=== PATIENT | male | born 1955 | race Caucasian/White ===

== ENCOUNTER 2018-05-27 12:33 | Emergency (ER) | payer BC ==
[~2018-05-27] VITALS: Ht 175.3 cm; Wt 79.4 kg
[2018-05-27] MEDS ORDERED: PIPERACILLIN/TAZOBACTAM 3.375 GM in IV NORMAL SALINE 50ML 50 ML IV ONE (12:45)
[2018-05-27 12:47] VITALS: BP 140/79
[2018-05-27] MEDS: PIPERACILLIN/TAZOBACTAM 3.375 GM in IV NORMAL SALINE 50ML 50 ML IV ONE (13:05)
[2018-05-27] MEDS: MORPHINE SULFATE 10 MG/ML VIAL. IV ONE (13:05)
--- NOTE | 2018-05-27 13:08 | RAD ---
Left index finger, 3 views, 05/27/2018: HISTORY: Amputation injury There is a soft tissue defect at the tip of the finger compatible with an amputation injury. There is fragmentation of the terminal tuft of the distal phalanx with mild associated bony loss. The proximal and middle phalanges are unremarkable. IMPRESSION: Comminuted fracture of the terminal tuft of the distal phalanx of the index finger. Electronically signed by: Ruben Gee MD (05/27/2018 1:05 PM) [facility]
[2018-05-27] MEDS: BUPIVACAINE 0.5% 50 ML VIAL. INJ ONE (13:20)
[2018-05-27] MEDS: LIDOCAINE 1% PF 2 ML VIAL. INJ ONE (13:20)
[2018-05-27] MEDS ORDERED: HYDR-3164 PO (15:05)
[2018-05-27] MEDS ORDERED: CEPH500T PO (15:05)
--- NOTE | 2018-05-27 15:06 | PHYS DOC ---
Past Medical History Past Medical History: High Cholesterol Additional Past Medical Histor: GOUT,CHRONIC BACK PAIN Past Surgical History: Other Additional Past Surgical Histo: BACK SURGERY Alcohol Use: None Drug Use: None Adult General Chief Complaint Chief Complaint: FINGER INJURY HPI HPI Patient is a 63 year old medical presents with left index finger laceration, patient states he was working with a table saw that accidentally cut him. Patient states is right-handed. Review of Systems Review of Systems Constitutional: Denies fever or chills [] Musculoskeletal: Denies back pain or joint pain [] Integument: Reports left index finger laceration Neurologic: Denies headache, focal weakness or sensory changes [] All other systems were reviewed and found to be within normal limits, except as documented in this note. Current Medications Current Medications Current Medications Medications (Trade) Dose Ordered Sig/Flip Start Time Stop Time Status Last Admin Dose Admin Bupivacaine HCl (Marcaine 0.5%) 50 ml 1X ONCE 05/27/18 13:00 05/27/18 13:02 DC 05/27/18 13:20 50 ML Lidocaine HCl (Xylocaine-Mpf 1% 2ml Vial) 2 ml 1X ONCE 05/27/18 13:00 05/27/18 13:02 DC 05/27/18 13:20 2 ML Morphine Sulfate (Morphine Sulfate) 5 mg 1X ONCE 05/27/18 12:45 05/27/18 12:48 DC 05/27/18 13:05 5 MG Piperacillin Sod/ Tazobactam Sod 3.375 gm/Sodium Chloride 50 ml @ 100 mls/hr 1X ONCE 05/27/18 13:00 05/27/18 13:29 DC 05/27/18 13:05 100 MLS/HR Allergies Allergies Allergies Coded Allergies Type Severity Reaction Last Updated Verified No Known Drug Allergies 05/27/18 No Physical Exam Physical Exam Constitutional: Well developed, well nourished, no acute distress, non-toxic appearance. [] Skin: C extremity Back: No tenderness, no CVA tenderness. [] Extremities: Left index finger with multiple lacerations of the tip of the finger, there is some skin avulsion noted. The nail has multiple lacerations as well. An area approximately 2 x 3 x 2 cm is affected, this no obvious tendon involvement, patient able to flex and extend the finger at the MIP, PIP and DIP joints. Adequate radius sensation to the left index finger. +2 left radial pulse. Neurologic: Alert and oriented X 3, normal motor function, normal sensory function, no focal deficits noted. [] Psychologic: Affect normal, judgement normal, mood normal. [] Current Patient Data Vital Signs Vital Signs Date Time Temp Pulse Resp B/P (MAP) Pulse Ox O2 Delivery O2 Flow Rate FiO2 05/27/18 12:47 97.5 61 18 140/79 (99) 100 Room Air 97.5 EKG EKG [] Radiology/Procedures Radiology/Procedures []PROCEDURE: FINGER(S) LEFT Left index finger, 3 views, 05/27/2018: HISTORY: Amputation injury There is a soft tissue defect at the tip of the finger compatible with an amputation injury. There is fragmentation of the terminal tuft of the distal phalanx with mild associated bony loss. The proximal and middle phalanges are unremarkable. IMPRESSION: Comminuted fracture of the terminal tuft of the distal phalanx of the index finger. Electronically signed by: Ruben Gee MD (05/27/2018 1:05 PM) [facility] DICTATED and SIGNED BY: RUBEN GEE MD DATE: 05/27/18 1306 Course & Med Decision Making Course & Med Decision Making Pertinent Labs and Imaging studies reviewed. (See chart for details) This is a 63-year-old male patient presented to the ED today with left index finger laceration, patient was accidentally cut with a table saw. Left index finger x-rays interpreted by radiologist were noted for-Comminuted fracture of the terminal tuft of the distal phalanx of the index finger. Patient was given Zosyn, nerve block was done to the fingers successfully, finger was cleaned with 500ml of NS and covered with non stick dressing. 14:31 Consulted with [facility], spoke with who requested we discharge patient and have him follow-up with his office tomorrow morning. I spoke with Velma in his office, she has an appointment scheduled for patient at 0745. Patient was discharged with cephalexin and hydrocodone as needed for pain. Dragon Disclaimer Dragon Disclaimer This electronic medical record was generated, in whole or in part, using a voice recognition dictation system. Departure Departure Impression: Primary Impression: Open fracture of tuft of distal phalanx of finger Disposition: 01 HOME, SELF-CARE Condition: STABLE Referrals: UNKNOWN PCP NAME (PCP) Follow-up with Dr. Pratt at [facility] tomorrow morning 7:45 AM. His office is on the first floor of the orthopedic building at [facility] Patient Instructions: Finger Fracture (Phalangeal)-SportsMed, Fingertip Laceration Additional Instructions: You were evaluated in the emergency room and noted to have an open fracture of the left index finger. We spoke with Dr. Pratt at [facility] who requested you follow-up with him first thing tomorrow morning. Your appointment at 7:45 AM on the first floor of orthopedic building at [facility] Scripts Hydrocodone/Apap 5-325 (NORCO 5-325 TABLET) 1 Each Tablet 1-2 TAB PO Q4-6HRS PRN for PAIN, #25 TAB Prov: ANTHONY DAUGHERTY APRN 05/27/18 Cephalexin (CEPHALEXIN) 500 Mg Tablet 1 TAB PO QID, #40 TAB Prov: ATNHONY DAUGHERTY APRN 05/27/18 ANTHONY DAUGHERTY APRN May 27, 2018 15:06
== END 2018-05-27 15:16 | disposition home or self-care (01) ==
LOC: ER 12:33
DX: S62.631B Displaced fracture of distal phalanx of left index finger, initial encounter for open fracture (principal); E78.00 Pure hypercholesterolemia, unspecified; G89.29 Other chronic pain; W27.0XXA Contact with workbench tool, initial encounter; Y93.89 Activity, other specified; Y92.89 Other specified places as the place of occurrence of the external cause; Y99.0 Civilian activity done for income or pay
CPT/HCPCS: 64450; 73140; 96365; 96375; 99284; J2270; J2543; J3490; 99283

== ENCOUNTER 2018-09-11 11:47 | Inpatient (IN) | payer BC ==
[~2018-09-11] VITALS: Ht 175.3 cm; Wt 79.4 kg
[~2018-09-11 11:47] MED LIST: CEPH500T PO; HYDR-3164 PO
[2018-09-11] MEDS ORDERED: IV NORMAL SALINE 1000ML BAG 1,000 ML IV ONE ×2 (12:15→14:00)
[2018-09-11] MEDS ORDERED: ONDANSETRON PF 4 MG/2 ML VIAL. IV ONE ×2 (12:15→15:30)
[2018-09-11 12:21] LABS: BASO % 0 % (0-3); EOS # 0.1 x10^3/uL (0.0-0.7); EOS % 1 % (0-3); HEMATOCRIT 48.4 % (39.0-53.0); HEMOGLOBIN 16.1 g/dL (13.0-17.5); LYMPH # 0.9 x10^3/uL (1.0-4.8); LYMPH % 13 % (24-48); MEAN CORPUSCULAR HEMOGLOBIN 31 pg (25-35); MEAN CORPUSCULAR HGB CONC 33 g/dL (31-37); MEAN CORPUSCULAR VOLUME 92 fL (79-100); MONO # 0.5 x10^3/uL (0.0-1.1); MONO % 7 % (0-9); NEUT # 5.8 x10^3uL (1.8-7.7); NEUT % 80 % (31-73); PLATELET COUNT 218 x10^3/uL (140-400); RED BLOOD COUNT 5.24 x10^6/uL (4.30-5.70); WHITE BLOOD COUNT 7.3 x10^3/uL (4.0-11.0)
[2018-09-11] MEDS ORDERED: MORPHINE SULFATE 10 MG/ML VIAL. IV ONE ×2 (12:30→15:15)
[2018-09-11 12:33] LABS: CALCIUM 9.2 mg/dL (8.5-10.1); GFR 75.2; POTASSIUM 3.9 mmol/L (3.5-5.1)
[2018-09-11 12:41] LABS: ALBUMIN 4.3 g/dL (3.4-5.0); ALBUMIN/GLOBULIN RATIO 1.2 (1.0-1.7); TOTAL BILIRUBIN 0.8 mg/dL (0.2-1.0); TOTAL PROTEIN 7.9 g/dL (6.4-8.2)
[2018-09-11] MEDS ORDERED: IOHEXOL 300 MG/ML 100ML VIAL. IV ONE (12:45)
[2018-09-11] MEDS ORDERED: CONTRAST GIVEN. MC PRN (13:00)
--- NOTE | 2018-09-11 13:04 | RAD ---
Examination: CT of the abdomen pelvis with IV contrast HISTORY: History of diarrhea COMPARISON: None available TECHNIQUE: Axial CT images of the abdomen pelvis were performed with IV contrast. Coronal and sagittal reformats are performed Exposure: One or more of the following individualized dose reduction techniques were utilized for this examination: 1. Automated exposure control 2. Adjustment of the mA and/or kV according to patient size 3. Use of iterative reconstruction technique FINDINGS: Mild bibasilar lung atelectasis. No evidence of free air identified in the abdomen. The visualized liver, spleen, adrenals grossly appears unremarkable. The gallbladder is mildly distended. The stomach is mildly distended. The visualized pancreas grossly appears unremarkable. The small bowel is nondilated. The appendix is normal. Feces and gas noted in the colon. There is mild thickened appearance of the wall of the transverse colon, descending colon the sigmoid colon with minimal surrounding fat stranding likely colitis. Urinary bladder is mildly distended. The bilateral kidneys enhance symmetrically. Mild aortic atherosclerosis. Lower lumbar fusion hardware identified at L4-L5 vertebral levels. IMPRESSION: 1. Mild thickened appearance of the wall of the transverse colon, descending colon, sigmoid colon with minimal surrounding fat stranding likely colitis. Electronically signed by: Asif Bowen MD (09/11/2018 1:01 PM) [id number]
[2018-09-11 15:00] LABS: BILIRUBIN,URINE NEGATIVE (NEG); CLARITY,URINE CLEAR; COLOR,URINE YELLOW; NITRITE,URINE NEGATIVE (NEG); PROTEIN,URINE NEGATIVE (NEG-TRACE); UROBILINOGEN,URINE 0.2 mg/dL (0.2 mg/dL)
[2018-09-11 15:13] LABS: BACTERIA,URINE 0 /HPF (0-FEW); RBC,URINE RARE /HPF (0-2); WBC,URINE RARE /HPF (0-4)
[2018-09-11] MEDS ORDERED: ONDANSETRON PF 4 MG/2 ML VIAL. IV PRN (15:30)
[2018-09-11] MEDS ORDERED: MORPHINE SULFATE 4 MG/ML VIAL. IV PRN (15:30)
[2018-09-11] MEDS ORDERED: CIPROFLOXACIN 400MG PREMIX 200 ML IV ONE (15:30)
[2018-09-11] MEDS ORDERED: fentaNYL PF VIAL 100 MCG/2 ML VIAL IV PRN (15:30)
--- NOTE | 2018-09-11 15:41 | PDOC1 ---
History and Physical Date of Admission Date of Admission DATE: 09/11/18 TIME: 15:40 Identification/Chief Complaint Chief Complaint SEEN IN ER WITH PROFUSE WATERY DIARRHEA X 6 DAYS, HAS TRIED GATORADE, BUT STIILL FEELS DEHYDRATED HAS HAD ABDOMINAL DISCOMFORT WELL Past Medical History Past Medical History Past Medical History Past Medical History: High Cholesterol Additional Past Medical Histor: GOUT,CHRONIC BACK PAIN Past Surgical History: Other Additional Past Surgical Histo: BACK SURGERY Alcohol Use: None Drug Use: None FHX HYPERLIPIDEMIA Cardiovascular: No pertinent hx Pulmonary: No pertinent hx ENT: No pertinent hx Renal/: No pertinent hx Endocrine: No pertinent hx Family History Family History: High Cholestrol Social History Smoke: No ALCOHOL: occassional Drugs: None Current Medications Current Medications Current Medications Ondansetron HCl (Zofran) 4 mg 1X ONCE IV Last administered on 09/11/18at 12:30 ; Start 09/11/18 at 12:15; Stop 09/11/18 at 12:16; Status DC Sodium Chloride 1,000 ml @ 1,000 mls/hr 1X ONCE IV Last administered on at 12:30; Start 09/11/18 at 12:15; Stop 09/11/18 at 13:14; Status DC Morphine Sulfate (Morphine Sulfate) 5 mg 1X ONCE IV Last administered on at 12:30; Start 09/11/18 at 12:30; Stop 09/11/18 at 12:31; Status DC Iohexol (Omnipaque 300 Mg/ml) 75 ml 1X ONCE IV ; Start 09/11/18 at 12:45; Stop 09/11/18 at 12:46; Status DC Info (CONTRAST GIVEN -- Rx MONITORING) 1 each PRN DAILY PRN MC SEE COMMENTS; Start 09/11/18 at 13:00; Stop 09/13/18 at 12:59 Sodium Chloride 1,000 ml @ 1,000 mls/hr 1X ONCE IV Last administered on at 14:04; Start 09/11/18 at 14:00; Stop 09/11/18 at 14:59; Status DC Morphine Sulfate (Morphine Sulfate) 5 mg 1X ONCE IV Last administered on at 15:33; Start 09/11/18 at 15:15; Stop 09/11/18 at 15:16; Status DC Ondansetron HCl (Zofran) 4 mg 1X ONCE IV ; Start 09/11/18 at 15:30; Stop at 15:31; Status DC Ciprofloxacin/ Dextrose 200 ml @ 200 mls/hr 1X ONCE IV ; Start 09/11/18 at 15: 30; Stop 09/11/18 at 16:29; Status UNV Metronidazole 100 ml @ 100 mls/hr 1X ONCE IV ; Start 09/11/18 at 15:30; Stop 09/11/18 at 16:29; Status UNV Ondansetron HCl (Zofran) 4 mg PRN Q8HRS PRN IV NAUSEA/VOMITING; Start 09/11/18 at 15:30; Stop 09/12/18 at 15:29; Status UNV Morphine Sulfate (Morphine Sulfate) 4 mg PRN Q2HR PRN IV PAIN; Start 09/11/18 at 15:30; Stop 09/12/18 at 15:29; Status UNV Fentanyl Citrate (Fentanyl 2ml Vial) 50 mcg PRN Q1HR PRN IV PAIN; Start at 15:30; Stop 09/12/18 at 15:29; Status UNV Sodium Chloride 1,000 ml @ 125 mls/hr Q8H IV ; Start 09/11/18 at 15:30; Stop at 15:29; Status UNV Active Scripts Active [place] 5-325 Tablet (Acetaminophen/Hydrocodone Bitart) 1 Each Tablet 1-2 Tab PO Q4-6HRS PRN Cephalexin 500 Mg Tablet 1 Tab PO QID Allergies Allergies: Coded Allergies: No Known Drug Allergies (Unverified , 05/27/18) ROS Review of System 14 PT ROS OTHERWISE NEG General: YES: Fatigue PSYCHOLOGICAL ROS: No: Anxiety, Behavioral Disorder, Concentration difficultie , Decreased libido, Depression, Disorientation, Hallucinations, Hostility, Irritablity, Memory difficulties, Mood Swings, Obsessive thoughts, Physical abuse, Sexual abuse, Sleep disturbances, Suicidal ideation, Other Eyes: No Blurry vision, No Decreased vision, No Double vision, No Dry eyes, No Excessive tearing, No Eye Pain, No Itchy Eyes, No Loss of vision, No Photophobia , No Scotomata, No Uses contacts, No Uses glasses, No Other HEENT: No: Heacaches, Visual Changes, Hearing change, Nasal congestion, Nasal discharge, Oral lesions, Sinus pain, Sore Throat, Epistaxis, Sneezing, Snoring, Tinnitus, Vertigo, Vocal changes, Other ALLERGY AND IMMUNOLOGY: No: Hives, Insect Bite Sensitivity, Itchy/Watery Eyes, Nasal Congestion, Post Nasal Drip, Seasonal Allergies, Other Hematological and Lymphatic: No: Bleeding Problems, Blood Clots, Blood Transfusions, Brusing, Night Sweats, Pallor, Swollen Lymph Nodes, Other ENDOCRINE: No: Breast Changes, Galactorrhea, Hair Pattern Changes, Hot Flashes , Malaise/lethargy, Mood Swings, Palpitations, Polydipsia/polyuria, Skin Changes , Temperature Intolerance, Unexpected Weight Changes, Other Breast: No New/Changing Breast Lumps, No Nipple changes, No Nipple discharge, No Other Respiratory: No: Cough, Hemoptysis, Orthopnea, Pleuritic Pain, Shortness of breath, SOB with excertion, Sputum Changes, Stridor, Tachypnea, Wheezing, Other Gastrointestinal: Yes Nausea, Yes Diarrhea Genitourinary: No Dysuria, No Frequency, No Incontinence, No Hematuria, No Retention, No Discharge, No Urgency, No Pain, No Flank Pain, No Other, No , No , No , No , No , No , No Musculoskeletal: No Gait Disturbance, No Joint Pain, No Joint Stiffness, No Joint Swelling, No Muscle Pain, No Muscular Weakness, No Pain In:, No Swelling In:, No Other Neurological: No Behavorial Changes, No Bowel/Bladder ControlChng, No Confusion , No Dizziness, No Gait Disturbance, No Headaches, No Impaired Coord/balance, No Memory Loss, No Numbness/Tingling, No Seizures, No Speech Problems, No Tremors, No Visual Changes, No Weakness, No Other Skin: Yes Dry Skin; No Eczema, No Hair Changes, No Lumps, No Mole Changes, No Mottling, No Nail Changes, No Pruritus, No Rash, No Skin Lesion Changes, No Other, No Acne Physical Exam General: Alert, Oriented X3, Cooperative, No acute distress, mild distress HEENT: Atraumatic, PERRLA Lungs: Clear to auscultation, Normal air movement Heart: S1S2, RRR, no thrills, no rubs, no gallops, no murmurs Cardiovascular: S1 Abdomen: Normal bowel sounds, Soft, No masses Rectal Exam: not examined Extremities: No clubbing, No cyanosis, No edema Neuro: Normal speech, Cranial nerves 3-12 NL Psych/Mental Status: Mental status NL, Mood NL Vitals Vitals Vital Signs Date Time Temp Pulse Resp B/P (MAP) Pulse Ox O2 Delivery O2 Flow Rate FiO2 09/11/18 15:33 18 09/11/18 14:05 68 142/78 (99) 97 Room Air 09/11/18 11:47 98.4 98.4 Labs Labs Laboratory Tests Test 09/11/18 12:07 09/11/18 12:30 09/11/18 14:48 White Blood Count 7.3 x10^3/uL (4.0-11.0) Red Blood Count 5.24 x10^6/uL (4.30-5.70) Hemoglobin 16.1 g/dL (13.0-17.5) Hematocrit 48.4 % (39.0-53.0) Mean Corpuscular Volume 92 fL (79-100) Mean Corpuscular Hemoglobin 31 pg (25-35) Mean Corpuscular Hemoglobin Concent 33 g/dL (31-37) Red Cell Distribution Width 13.0 % (11.5-14.5) Platelet Count 218 x10^3/uL (140-400) Neutrophils (%) (Auto) 80 % (31-73) Lymphocytes (%) (Auto) 13 % (24-48) Monocytes (%) (Auto) 7 % (0-9) Eosinophils (%) (Auto) 1 % (0-3) Basophils (%) (Auto) 0 % (0-3) Neutrophils # (Auto) 5.8 x10^3uL (1.8-7.7) Lymphocytes # (Auto) 0.9 x10^3/uL (1.0-4.8) Monocytes # (Auto) 0.5 x10^3/uL (0.0-1.1) Eosinophils # (Auto) 0.1 x10^3/uL (0.0-0.7) Basophils # (Auto) 0.0 x10^3/uL (0.0-0.2) Sodium Level 141 mmol/L (136-145) Potassium Level 3.9 mmol/L (3.5-5.1) Chloride Level 103 mmol/L (98-107) Carbon Dioxide Level 29 mmol/L (21-32) Anion Gap 9 (6-14) Blood Urea Nitrogen 18 mg/dL (8-26) Creatinine 1.0 mg/dL (0.7-1.3) Estimated GFR (Cockcroft-Gault) 75.2 BUN/Creatinine Ratio 18 (6-20) Glucose Level 102 mg/dL (70-99) Calcium Level 9.2 mg/dL (8.5-10.1) Total Bilirubin 0.8 mg/dL (0.2-1.0) Aspartate Amino Transf (AST/SGOT) 21 U/L (15-37) Alanine Aminotransferase (ALT/SGPT) 28 U/L (16-63) Alkaline Phosphatase 68 U/L (46-116) Total Protein 7.9 g/dL (6.4-8.2) Albumin 4.3 g/dL (3.4-5.0) Albumin/Globulin Ratio 1.2 (1.0-1.7) Lactic Acid Level 0.8 mmol/L (0.4-2.0) Urine Collection Type Unknown Urine Color Yellow Urine Clarity Clear Urine pH 5.0 Urine Specific [place] >=1.030 Urine Protein Negative mg/dL (NEG-TRACE) Urine Glucose (UA) Negative mg/dL (NEG) Urine Ketones (Stick) 15 mg/dL (NEG) Urine Blood Negative (NEG) Urine Nitrite Negative (NEG) Urine Bilirubin Negative (NEG) Urine Urobilinogen Dipstick 0.2 mg/dL (0.2 mg/dL) Urine Leukocyte Esterase Negative (NEG) Urine RBC Rare /HPF (0-2) Urine WBC Rare /HPF (0-4) Urine Bacteria 0 /HPF (0-FEW) Urine Mucus Slight /LPF Laboratory Tests Test 09/11/18 12:07 09/11/18 12:30 09/11/18 14:48 White Blood Count 7.3 x10^3/uL (4.0-11.0) Red Blood Count 5.24 x10^6/uL (4.30-5.70) Hemoglobin 16.1 g/dL (13.0-17.5) Hematocrit 48.4 % (39.0-53.0) Mean Corpuscular Volume 92 fL (79-100) Mean Corpuscular Hemoglobin 31 pg (25-35) Mean Corpuscular Hemoglobin Concent 33 g/dL (31-37) Red Cell Distribution Width 13.0 % (11.5-14.5) Platelet Count 218 x10^3/uL (140-400) Neutrophils (%) (Auto) 80 % (31-73) Lymphocytes (%) (Auto) 13 % (24-48) Monocytes (%) (Auto) 7 % (0-9) Eosinophils (%) (Auto) 1 % (0-3) Basophils (%) (Auto) 0 % (0-3) Neutrophils # (Auto) 5.8 x10^3uL (1.8-7.7) Lymphocytes # (Auto) 0.9 x10^3/uL (1.0-4.8) Monocytes # (Auto) 0.5 x10^3/uL (0.0-1.1) Eosinophils # (Auto) 0.1 x10^3/uL (0.0-0.7) Basophils # (Auto) 0.0 x10^3/uL (0.0-0.2) Sodium Level 141 mmol/L (136-145) Potassium Level 3.9 mmol/L (3.5-5.1) Chloride Level 103 mmol/L (98-107) Carbon Dioxide Level 29 mmol/L (21-32) Anion Gap 9 (6-14) Blood Urea Nitrogen 18 mg/dL (8-26) Creatinine 1.0 mg/dL (0.7-1.3) Estimated GFR (Cockcroft-Gault) 75.2 BUN/Creatinine Ratio 18 (6-20) Glucose Level 102 mg/dL (70-99) Calcium Level 9.2 mg/dL (8.5-10.1) Total Bilirubin 0.8 mg/dL (0.2-1.0) Aspartate Amino Transf (AST/SGOT) 21 U/L (15-37) Alanine Aminotransferase (ALT/SGPT) 28 U/L (16-63) Alkaline Phosphatase 68 U/L (46-116) Total Protein 7.9 g/dL (6.4-8.2) Albumin 4.3 g/dL (3.4-5.0) Albumin/Globulin Ratio 1.2 (1.0-1.7) Lactic Acid Level 0.8 mmol/L (0.4-2.0) Urine Collection Type Unknown Urine Color Yellow Urine Clarity Clear Urine pH 5.0 Urine Specific [place] >=1.030 Urine Protein Negative mg/dL (NEG-TRACE) Urine Glucose (UA) Negative mg/dL (NEG) Urine Ketones (Stick) 15 mg/dL (NEG) Urine Blood Negative (NEG) Urine Nitrite Negative (NEG) Urine Bilirubin Negative (NEG) Urine Urobilinogen Dipstick 0.2 mg/dL (0.2 mg/dL) Urine Leukocyte Esterase Negative (NEG) Urine RBC Rare /HPF (0-2) Urine WBC Rare /HPF (0-4) Urine Bacteria 0 /HPF (0-FEW) Urine Mucus Slight /LPF Images Images STATUS: REG ER ORD. PHYSICIAN: DELMIS KERNS APRN REASON: diarrhea and abdominal pain x 5 days PROCEDURE: CT ABD PELV W/ IV CONTRST ONLY Examination: CT of the abdomen pelvis with IV contrast HISTORY: History of diarrhea COMPARISON: None available TECHNIQUE: Axial CT images of the abdomen pelvis were performed with IV contrast. Coronal and sagittal reformats are performed Exposure: One or more of the following individualized dose reduction techniques were utilized for this examination: 1. Automated exposure control 2. Adjustment of the mA and/or kV according to patient size 3. Use of iterative reconstruction technique FINDINGS: Mild bibasilar lung atelectasis. No evidence of free air identified in the abdomen. The visualized liver, spleen, adrenals grossly appears unremarkable. The gallbladder is mildly distended. The stomach is mildly distended. The visualized pancreas grossly appears unremarkable. The small bowel is nondilated. The appendix is normal. Feces and gas noted in the colon. There is mild thickened appearance of the wall of the transverse colon, descending colon the sigmoid colon with minimal surrounding fat stranding likely colitis. Urinary bladder is mildly distended. The bilateral kidneys enhance symmetrically. Mild aortic atherosclerosis. Lower lumbar fusion hardware identified at L4-L5 vertebral levels. IMPRESSION: 1. Mild thickened appearance of the wall of the transverse colon, descending colon, sigmoid colon with minimal surrounding fat stranding likely colitis. VTE Prophylaxis Ordered VTE Prophylaxis Devices: Yes VTE Pharmacological Prophylaxi: Yes Assessment/Plan Assessment/Plan IMPRESSION 1. PERSISTENT GASTROENTERITIS 2. DEHYDRATION 3. ABD PAIN POSSIBLE COLITIS 4. Mild thickened appearance of the wall of the transverse colon, descending colon, sigmoid colon with minimal surrounding fat stranding likely colitis. PLAN NPO IV FLUID SUPPORT C-DIFF SCREEN GI CONSULT HOME MEDS AM LABS CT ABD/PELVIS DVT PROPHYLAXIS IV CIPRO/ FLAGYL BEN HODGES MD Sep 11, 2018 15:40
[2018-09-11 16:30] VITALS: BP 161/85
[2018-09-11] MEDS: IV NORMAL SALINE 1000ML BAG 1,000 ML IV SCH ×2 (17:26→21:03)
[2018-09-11] MEDS ORDERED: ALLO300T PO (18:28)
[2018-09-11] MEDS ORDERED: FAMO20TA5 PO (18:28)
[2018-09-11] MEDS ORDERED: SIMV40TA3 PO (18:28)
[2018-09-11 19:00] VITALS: BP 112/76
[2018-09-11] MEDS ORDERED: HYDROcodone/APAP 5/325MG 1 TAB TABLET PO PRN ×3 (19:00→19:15)
--- NOTE | 2018-09-11 19:10 | PHYS DOC ---
Past Medical History Past Medical History: High Cholesterol Additional Past Medical Histor: GOUT,CHRONIC BACK PAIN Past Surgical History: Other Additional Past Surgical Histo: BACK SURGERY, KNEE Alcohol Use: None Drug Use: None Adult General Chief Complaint Chief Complaint: DIARRHEA HPI HPI Patient is a 63 year old male who presents with lower mid abdominal pain, abdominal cramping and diarrhea that began 5 days ago. The patient denies fever or body aches. He denies a history of abdominal surgeries. The patient is healthy with only high cholesterol as a medical issue. The patient denies any family members with similar symptoms. Review of Systems Review of Systems Constitutional: Denies fever or chills [] Respiratory: Denies cough or shortness of breath [] Cardiovascular: No additional information not addressed in HPI [] GI: See history of present illness : Denies dysuria or hematuria [] Musculoskeletal: Denies back pain or joint pain [] Integument: Denies rash or skin lesions [] Neurologic: Denies headache, focal weakness or sensory changes [] Endocrine: Denies polyuria or polydipsia [] All other systems were reviewed and found to be within normal limits, except as documented in this note. Current Medications Current Medications Current Medications Medications (Trade) Dose Ordered Sig/Flip Start Time Stop Time Status Last Admin Dose Admin Info (CONTRAST GIVEN -- Rx MONITORING) 1 each PRN DAILY PRN 09/11/18 13:00 09/13/18 12:59 Iohexol (Omnipaque 300 Mg/ml) 75 ml 1X ONCE 09/11/18 12:45 09/11/18 12:46 DC Morphine Sulfate (Morphine Sulfate) 5 mg 1X ONCE 09/11/18 15:15 09/11/18 15:16 DC 09/11/18 15:33 5 MG Ondansetron HCl (Zofran) 4 mg 1X ONCE 09/11/18 12:15 09/11/18 12:16 DC 09/11/18 12:30 4 MG Sodium Chloride 1,000 ml @ 1,000 mls/hr 1X ONCE 09/11/18 14:00 09/11/18 14:59 DC 09/11/18 14:04 1,000 MLS/HR Allergies Allergies Allergies Coded Allergies Type Severity Reaction Last Updated Verified No Known Drug Allergies 05/27/18 No Physical Exam Physical Exam Constitutional: Well developed, well nourished, no acute distress, non-toxic appearance. [] Cardiovascular:Heart rate regular rhythm, no murmur [] Lungs & Thorax: Bilateral breath sounds clear to auscultation [] Abdomen: Bowel sounds hyperactive, soft, lower abdominal tenderness, no masses, no pulsatile masses. [] Skin: Warm, dry, no erythema, no rash. [] Back: No tenderness, no CVA tenderness. [] Extremities: No tenderness, no cyanosis, no clubbing, ROM intact, no edema. [] Neurologic: Alert and oriented X 3, normal motor function, normal sensory function, no focal deficits noted. [] Psychologic: Affect normal, judgement normal, mood normal. [] Current Patient Data Vital Signs Vital Signs Date Time Temp Pulse Resp B/P (MAP) Pulse Ox O2 Delivery O2 Flow Rate FiO2 09/11/18 14:05 68 142/78 (99) 97 Room Air 09/11/18 12:30 20 09/11/18 11:47 98.4 98.4 Lab Values Laboratory Tests Test 09/11/18 12:07 09/11/18 12:30 09/11/18 14:48 White Blood Count 7.3 x10^3/uL (4.0-11.0) Red Blood Count 5.24 x10^6/uL (4.30-5.70) Hemoglobin 16.1 g/dL (13.0-17.5) Hematocrit 48.4 % (39.0-53.0) Mean Corpuscular Volume 92 fL (79-100) Mean Corpuscular Hemoglobin 31 pg (25-35) Mean Corpuscular Hemoglobin Concent 33 g/dL (31-37) Red Cell Distribution Width 13.0 % (11.5-14.5) Platelet Count 218 x10^3/uL (140-400) Neutrophils (%) (Auto) 80 % (31-73) H Lymphocytes (%) (Auto) 13 % (24-48) L Monocytes (%) (Auto) 7 % (0-9) Eosinophils (%) (Auto) 1 % (0-3) Basophils (%) (Auto) 0 % (0-3) Neutrophils # (Auto) 5.8 x10^3uL (1.8-7.7) Lymphocytes # (Auto) 0.9 x10^3/uL (1.0-4.8) L Monocytes # (Auto) 0.5 x10^3/uL (0.0-1.1) Eosinophils # (Auto) 0.1 x10^3/uL (0.0-0.7) Basophils # (Auto) 0.0 x10^3/uL (0.0-0.2) Sodium Level 141 mmol/L (136-145) Potassium Level 3.9 mmol/L (3.5-5.1) Chloride Level 103 mmol/L (98-107) Carbon Dioxide Level 29 mmol/L (21-32) Anion Gap 9 (6-14) Blood Urea Nitrogen 18 mg/dL (8-26) Creatinine 1.0 mg/dL (0.7-1.3) Estimated GFR (Cockcroft-Gault) 75.2 BUN/Creatinine Ratio 18 (6-20) Glucose Level 102 mg/dL (70-99) H Calcium Level 9.2 mg/dL (8.5-10.1) Total Bilirubin 0.8 mg/dL (0.2-1.0) Aspartate Amino Transferase (AST) 21 U/L (15-37) Alanine Aminotransferase (ALT) 28 U/L (16-63) Alkaline Phosphatase 68 U/L (46-116) Total Protein 7.9 g/dL (6.4-8.2) Albumin 4.3 g/dL (3.4-5.0) Albumin/Globulin Ratio 1.2 (1.0-1.7) Lactic Acid Level 0.8 mmol/L (0.4-2.0) Urine Collection Type Unknown Urine Color Yellow Urine Clarity Clear Urine pH 5.0 Urine Specific [place] >=1.030 Urine Protein Negative mg/dL (NEG-TRACE) Urine Glucose (UA) Negative mg/dL (NEG) Urine Ketones (Stick) 15 mg/dL (NEG) Urine Blood Negative (NEG) Urine Nitrite Negative (NEG) Urine Bilirubin Negative (NEG) Urine Urobilinogen Dipstick 0.2 mg/dL (0.2 mg/dL) Urine Leukocyte Esterase Negative (NEG) Urine RBC Rare /HPF (0-2) Urine WBC Rare /HPF (0-4) Urine Bacteria 0 /HPF (0-FEW) Urine Mucus Slight /LPF Laboratory Tests 09/11/18 12:07 Laboratory Tests 09/11/18 12:07 EKG EKG [] Radiology/Procedures Radiology/Procedures []PATIENT: GET EVANS GACCOUNT: [id number]#: [id number] : 1955 LOCATION: ER AGE: 63 SEX: M EXAM STATUS: REG ER ORD. PHYSICIAN: DELMIS KERNS APRN REASON: diarrhea and abdominal pain x 5 days PROCEDURE: CT ABD PELV W/ IV CONTRST ONLY Examination: CT of the abdomen pelvis with IV contrast HISTORY: History of diarrhea COMPARISON: None available TECHNIQUE: Axial CT images of the abdomen pelvis were performed with IV contrast. Coronal and sagittal reformats are performed Exposure: One or more of the following individualized dose reduction techniques were utilized for this examination: 1. Automated exposure control 2. Adjustment of the mA and/or kV according to patient size 3. Use of iterative reconstruction technique FINDINGS: Mild bibasilar lung atelectasis. No evidence of free air identified in the abdomen. The visualized liver, spleen, adrenals grossly appears unremarkable. The gallbladder is mildly distended. The stomach is mildly distended. The visualized pancreas grossly appears unremarkable. The small bowel is nondilated. The appendix is normal. Feces and gas noted in the colon. There is mild thickened appearance of the wall of the transverse colon, descending colon the sigmoid colon with minimal surrounding fat stranding likely colitis. Urinary bladder is mildly distended. The bilateral kidneys enhance symmetrically. Mild aortic atherosclerosis. Lower lumbar fusion hardware identified at L4-L5 vertebral levels. IMPRESSION: 1. Mild thickened appearance of the wall of the transverse colon, descending colon, sigmoid colon with minimal surrounding fat stranding likely colitis. Electronically signed by: Asif Bowen MD (09/11/2018 1:01 PM) [id number] DICTATED and SIGNED BY: ASIF BOWEN MD DATE: 09/11/18 1301 Course & Med Decision Making Course & Med Decision Making Pertinent Labs and Imaging studies reviewed. (See chart for details) []The patient has been admitted to Dr. Jarvis's service. Dragon Disclaimer Dragon Disclaimer This electronic medical record was generated, in whole or in part, using a voice recognition dictation system. Departure Departure Impression: Primary Impression: Diarrhea Additional Impressions: Colitis Abdominal pain Disposition: ADMITTED INPATIENT Admitting Physician: Get Blancas Condition: GOOD Problem Qualifiers DELMIS KERNS APRN Sep 11, 2018 19:10
[2018-09-11] MEDS ORDERED: CIPROFLOXACIN 400MG PREMIX 200 ML IV SCH (21:00)
[2018-09-11] MEDS: FAMOTIDINE 20 MG TABLET. PO SCH (21:01)
[2018-09-11] MEDS: SIMVASTATIN 40 MG TABLET. PO SCH (21:01)
[2018-09-11 23:00] VITALS: BP 86/48
[2018-09-12 03:00] VITALS: BP 82/52
[2018-09-12] MEDS: IV NORMAL SALINE 1000ML BAG 1,000 ML IV SCH (03:44)
[2018-09-12 05:38] LABS: BASO % 0 % (0-3); EOS # 0.2 x10^3/uL (0.0-0.7); EOS % 3 % (0-3); HEMATOCRIT 38.5 % (39.0-53.0); HEMOGLOBIN 12.8 g/dL (13.0-17.5); LYMPH # 1.6 x10^3/uL (1.0-4.8); LYMPH % 32 % (24-48); MEAN CORPUSCULAR HEMOGLOBIN 31 pg (25-35); MEAN CORPUSCULAR HGB CONC 33 g/dL (31-37); MEAN CORPUSCULAR VOLUME 93 fL (79-100); MONO # 0.7 x10^3/uL (0.0-1.1); MONO % 13 % (0-9); NEUT # 2.5 x10^3uL (1.8-7.7); NEUT % 51 % (31-73); PLATELET COUNT 187 x10^3/uL (140-400); RED BLOOD COUNT 4.14 x10^6/uL (4.30-5.70)
[2018-09-12 05:58] LABS: CALCIUM 7.9 mg/dL (8.5-10.1); CREATININE 0.9 mg/dL (0.7-1.3); POTASSIUM 3.6 mmol/L (3.5-5.1)
[2018-09-12 07:00] VITALS: BP 100/54
--- NOTE | 2018-09-12 07:54 | PDOC ---
PROGRESS NOTES Chief Complaint Chief Complaint 1. PERSISTENT GASTROENTERITIS 2. DEHYDRATION 3. ABD PAIN POSSIBLE COLITIS 4. Mild thickened appearance of the wall of the transverse colon, descending colon, sigmoid colon with minimal surrounding fat stranding likely colitis. History of Present Illness History of Present Illness 63yo M admitted with profuse watery diarrhea, unable to stand well due to this since Saturday (09/06/18) w/ lower abdominal cramping and watery diarrhea (20-30 times daily at home, twice today). He hasn't eaten much because diarrhea occurs immediately after eating. 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 He also went on a [employer] cruise last month. Last antibiotic exposure over a month ago. Uses Tramadol and TENS device for chronic back pain. Took pain meds last night but has been okay today. This morning he would like to eat more, has had less diarrhea. He wants to know results of his c. difficile results and wants to go home. Plan: Contact lab for c. diff results D/W GI, will advance to GI soft Vitals Vitals Vital Signs Date Time Temp Pulse Resp B/P (MAP) Pulse Ox O2 Delivery O2 Flow Rate FiO2 09/12/18 03:00 98.9 61 16 82/52 (62) 98 98.9 09/11/18 18:30 Room Air Physical Exam General: Alert, Oriented X3, Cooperative, No acute distress, mild distress Abdomen: Normal bowel sounds, Soft, No masses Extremities: No clubbing, No cyanosis, No edema Labs LABS Laboratory Tests Test 09/11/18 12:07 09/11/18 12:30 09/11/18 14:48 09/12/18 04:10 White Blood Count 7.3 x10^3/uL (4.0-11.0) 5.0 x10^3/uL (4.0-11.0) Red Blood Count 5.24 x10^6/uL (4.30-5.70) 4.14 x10^6/uL (4.30-5.70) Hemoglobin 16.1 g/dL (13.0-17.5) 12.8 g/dL (13.0-17.5) Hematocrit 48.4 % (39.0-53.0) 38.5 % (39.0-53.0) Mean Corpuscular Volume 92 fL (79-100) 93 fL (79-100) Mean Corpuscular Hemoglobin 31 pg (25-35) 31 pg (25-35) Mean Corpuscular Hemoglobin Concent 33 g/dL (31-37) 33 g/dL (31-37) Red Cell Distribution Width 13.0 % (11.5-14.5) 13.0 % (11.5-14.5) Platelet Count 218 x10^3/uL (140-400) 187 x10^3/uL (140-400) Neutrophils (%) (Auto) 80 % (31-73) 51 % (31-73) Lymphocytes (%) (Auto) 13 % (24-48) 32 % (24-48) Monocytes (%) (Auto) 7 % (0-9) 13 % (0-9) Eosinophils (%) (Auto) 1 % (0-3) 3 % (0-3) Basophils (%) (Auto) 0 % (0-3) 0 % (0-3) Neutrophils # (Auto) 5.8 x10^3uL (1.8-7.7) 2.5 x10^3uL (1.8-7.7) Lymphocytes # (Auto) 0.9 x10^3/uL (1.0-4.8) 1.6 x10^3/uL (1.0-4.8) Monocytes # (Auto) 0.5 x10^3/uL (0.0-1.1) 0.7 x10^3/uL (0.0-1.1) Eosinophils # (Auto) 0.1 x10^3/uL (0.0-0.7) 0.2 x10^3/uL (0.0-0.7) Basophils # (Auto) 0.0 x10^3/uL (0.0-0.2) 0.0 x10^3/uL (0.0-0.2) Sodium Level 141 mmol/L (136-145) 143 mmol/L (136-145) Potassium Level 3.9 mmol/L (3.5-5.1) 3.6 mmol/L (3.5-5.1) Chloride Level 103 mmol/L (98-107) 107 mmol/L (98-107) Carbon Dioxide Level 29 mmol/L (21-32) 27 mmol/L (21-32) Anion Gap 9 (6-14) 9 (6-14) Blood Urea Nitrogen 18 mg/dL (8-26) 9 mg/dL (8-26) Creatinine 1.0 mg/dL (0.7-1.3) 0.9 mg/dL (0.7-1.3) Estimated GFR (Cockcroft-Gault) 75.2 85.0 BUN/Creatinine Ratio 18 (6-20) Glucose Level 102 mg/dL (70-99) 93 mg/dL (70-99) Calcium Level 9.2 mg/dL (8.5-10.1) 7.9 mg/dL (8.5-10.1) Total Bilirubin 0.8 mg/dL (0.2-1.0) Aspartate Amino Transf (AST/SGOT) 21 U/L (15-37) Alanine Aminotransferase (ALT/SGPT) 28 U/L (16-63) Alkaline Phosphatase 68 U/L (46-116) Total Protein 7.9 g/dL (6.4-8.2) Albumin 4.3 g/dL (3.4-5.0) Albumin/Globulin Ratio 1.2 (1.0-1.7) Lactic Acid Level 0.8 mmol/L (0.4-2.0) Urine Collection Type Unknown Urine Color Yellow Urine Clarity Clear Urine pH 5.0 Urine Specific [place] >=1.030 Urine Protein Negative mg/dL (NEG-TRACE) Urine Glucose (UA) Negative mg/dL (NEG) Urine Ketones (Stick) 15 mg/dL (NEG) Urine Blood Negative (NEG) Urine Nitrite Negative (NEG) Urine Bilirubin Negative (NEG) Urine Urobilinogen Dipstick 0.2 mg/dL (0.2 mg/dL) Urine Leukocyte Esterase Negative (NEG) Urine RBC Rare /HPF (0-2) Urine WBC Rare /HPF (0-4) Urine Bacteria 0 /HPF (0-FEW) Urine Mucus Slight /LPF Assessment and Plan Assessmemt and Plan Problems Medical Problems: (1) Abdominal pain Status: Acute (2) Colitis Status: Acute (3) Diarrhea Status: Acute Comment Review of Relevant I have reviewed the following items yue (where applicable) has been applied. Labs Laboratory Tests Test 09/11/18 12:07 09/11/18 12:30 09/11/18 14:48 09/12/18 04:10 White Blood Count 7.3 x10^3/uL (4.0-11.0) 5.0 x10^3/uL (4.0-11.0) Red Blood Count 5.24 x10^6/uL (4.30-5.70) 4.14 x10^6/uL (4.30-5.70) Hemoglobin 16.1 g/dL (13.0-17.5) 12.8 g/dL (13.0-17.5) Hematocrit 48.4 % (39.0-53.0) 38.5 % (39.0-53.0) Mean Corpuscular Volume 92 fL (79-100) 93 fL (79-100) Mean Corpuscular Hemoglobin 31 pg (25-35) 31 pg (25-35) Mean Corpuscular Hemoglobin Concent 33 g/dL (31-37) 33 g/dL (31-37) Red Cell Distribution Width 13.0 % (11.5-14.5) 13.0 % (11.5-14.5) Platelet Count 218 x10^3/uL (140-400) 187 x10^3/uL (140-400) Neutrophils (%) (Auto) 80 % (31-73) 51 % (31-73) Lymphocytes (%) (Auto) 13 % (24-48) 32 % (24-48) Monocytes (%) (Auto) 7 % (0-9) 13 % (0-9) Eosinophils (%) (Auto) 1 % (0-3) 3 % (0-3) Basophils (%) (Auto) 0 % (0-3) 0 % (0-3) Neutrophils # (Auto) 5.8 x10^3uL (1.8-7.7) 2.5 x10^3uL (1.8-7.7) Lymphocytes # (Auto) 0.9 x10^3/uL (1.0-4.8) 1.6 x10^3/uL (1.0-4.8) Monocytes # (Auto) 0.5 x10^3/uL (0.0-1.1) 0.7 x10^3/uL (0.0-1.1) Eosinophils # (Auto) 0.1 x10^3/uL (0.0-0.7) 0.2 x10^3/uL (0.0-0.7) Basophils # (Auto) 0.0 x10^3/uL (0.0-0.2) 0.0 x10^3/uL (0.0-0.2) Sodium Level 141 mmol/L (136-145) 143 mmol/L (136-145) Potassium Level 3.9 mmol/L (3.5-5.1) 3.6 mmol/L (3.5-5.1) Chloride Level 103 mmol/L (98-107) 107 mmol/L (98-107) Carbon Dioxide Level 29 mmol/L (21-32) 27 mmol/L (21-32) Anion Gap 9 (6-14) 9 (6-14) Blood Urea Nitrogen 18 mg/dL (8-26) 9 mg/dL (8-26) Creatinine 1.0 mg/dL (0.7-1.3) 0.9 mg/dL (0.7-1.3) Estimated GFR (Cockcroft-Gault) 75.2 85.0 BUN/Creatinine Ratio 18 (6-20) Glucose Level 102 mg/dL (70-99) 93 mg/dL (70-99) Calcium Level 9.2 mg/dL (8.5-10.1) 7.9 mg/dL (8.5-10.1) Total Bilirubin 0.8 mg/dL (0.2-1.0) Aspartate Amino Transf (AST/SGOT) 21 U/L (15-37) Alanine Aminotransferase (ALT/SGPT) 28 U/L (16-63) Alkaline Phosphatase 68 U/L (46-116) Total Protein 7.9 g/dL (6.4-8.2) Albumin 4.3 g/dL (3.4-5.0) Albumin/Globulin Ratio 1.2 (1.0-1.7) Lactic Acid Level 0.8 mmol/L (0.4-2.0) Urine Collection Type Unknown Urine Color Yellow Urine Clarity Clear Urine pH 5.0 Urine Specific [place] >=1.030 Urine Protein Negative mg/dL (NEG-TRACE) Urine Glucose (UA) Negative mg/dL (NEG) Urine Ketones (Stick) 15 mg/dL (NEG) Urine Blood Negative (NEG) Urine Nitrite Negative (NEG) Urine Bilirubin Negative (NEG) Urine Urobilinogen Dipstick 0.2 mg/dL (0.2 mg/dL) Urine Leukocyte Esterase Negative (NEG) Urine RBC Rare /HPF (0-2) Urine WBC Rare /HPF (0-4) Urine Bacteria 0 /HPF (0-FEW) Urine Mucus Slight /LPF Laboratory Tests Test 09/11/18 12:07 09/11/18 12:30 09/11/18 14:48 09/12/18 04:10 White Blood Count 7.3 x10^3/uL (4.0-11.0) 5.0 x10^3/uL (4.0-11.0) Red Blood Count 5.24 x10^6/uL (4.30-5.70) 4.14 x10^6/uL (4.30-5.70) Hemoglobin 16.1 g/dL (13.0-17.5) 12.8 g/dL (13.0-17.5) Hematocrit 48.4 % (39.0-53.0) 38.5 % (39.0-53.0) Mean Corpuscular Volume 92 fL (79-100) 93 fL (79-100) Mean Corpuscular Hemoglobin 31 pg (25-35) 31 pg (25-35) Mean Corpuscular Hemoglobin Concent 33 g/dL (31-37) 33 g/dL (31-37) Red Cell Distribution Width 13.0 % (11.5-14.5) 13.0 % (11.5-14.5) Platelet Count 218 x10^3/uL (140-400) 187 x10^3/uL (140-400) Neutrophils (%) (Auto) 80 % (31-73) 51 % (31-73) Lymphocytes (%) (Auto) 13 % (24-48) 32 % (24-48) Monocytes (%) (Auto) 7 % (0-9) 13 % (0-9) Eosinophils (%) (Auto) 1 % (0-3) 3 % (0-3) Basophils (%) (Auto) 0 % (0-3) 0 % (0-3) Neutrophils # (Auto) 5.8 x10^3uL (1.8-7.7) 2.5 x10^3uL (1.8-7.7) Lymphocytes # (Auto) 0.9 x10^3/uL (1.0-4.8) 1.6 x10^3/uL (1.0-4.8) Monocytes # (Auto) 0.5 x10^3/uL (0.0-1.1) 0.7 x10^3/uL (0.0-1.1) Eosinophils # (Auto) 0.1 x10^3/uL (0.0-0.7) 0.2 x10^3/uL (0.0-0.7) Basophils # (Auto) 0.0 x10^3/uL (0.0-0.2) 0.0 x10^3/uL (0.0-0.2) Sodium Level 141 mmol/L (136-145) 143 mmol/L (136-145) Potassium Level 3.9 mmol/L (3.5-5.1) 3.6 mmol/L (3.5-5.1) Chloride Level 103 mmol/L (98-107) 107 mmol/L (98-107) Carbon Dioxide Level 29 mmol/L (21-32) 27 mmol/L (21-32) Anion Gap 9 (6-14) 9 (6-14) Blood Urea Nitrogen 18 mg/dL (8-26) 9 mg/dL (8-26) Creatinine 1.0 mg/dL (0.7-1.3) 0.9 mg/dL (0.7-1.3) Estimated GFR (Cockcroft-Gault) 75.2 85.0 BUN/Creatinine Ratio 18 (6-20) Glucose Level 102 mg/dL (70-99) 93 mg/dL (70-99) Calcium Level 9.2 mg/dL (8.5-10.1) 7.9 mg/dL (8.5-10.1) Total Bilirubin 0.8 mg/dL (0.2-1.0) Aspartate Amino Transf (AST/SGOT) 21 U/L (15-37) Alanine Aminotransferase (ALT/SGPT) 28 U/L (16-63) Alkaline Phosphatase 68 U/L (46-116) Total Protein 7.9 g/dL (6.4-8.2) Albumin 4.3 g/dL (3.4-5.0) Albumin/Globulin Ratio 1.2 (1.0-1.7) Lactic Acid Level 0.8 mmol/L (0.4-2.0) Urine Collection Type Unknown Urine Color Yellow Urine Clarity Clear Urine pH 5.0 Urine Specific [place] >=1.030 Urine Protein Negative mg/dL (NEG-TRACE) Urine Glucose (UA) Negative mg/dL (NEG) Urine Ketones (Stick) 15 mg/dL (NEG) Urine Blood Negative (NEG) Urine Nitrite Negative (NEG) Urine Bilirubin Negative (NEG) Urine Urobilinogen Dipstick 0.2 mg/dL (0.2 mg/dL) Urine Leukocyte Esterase Negative (NEG) Urine RBC Rare /HPF (0-2) Urine WBC Rare /HPF (0-4) Urine Bacteria 0 /HPF (0-FEW) Urine Mucus Slight /LPF Medications Current Medications Ondansetron HCl (Zofran) 4 mg 1X ONCE IV Last administered on 09/11/18at 12:30 ; Start 09/11/18 at 12:15; Stop 09/11/18 at 12:16; Status DC Sodium Chloride 1,000 ml @ 1,000 mls/hr 1X ONCE IV Last administered on at 12:30; Start 09/11/18 at 12:15; Stop 09/11/18 at 13:14; Status DC Morphine Sulfate (Morphine Sulfate) 5 mg 1X ONCE IV Last administered on at 12:30; Start 09/11/18 at 12:30; Stop 09/11/18 at 12:31; Status DC Iohexol (Omnipaque 300 Mg/ml) 75 ml 1X ONCE IV ; Start 09/11/18 at 12:45; Stop 09/11/18 at 12:46; Status DC Info (CONTRAST GIVEN -- Rx MONITORING) 1 each PRN DAILY PRN MC SEE COMMENTS; Start 09/11/18 at 13:00; Stop 09/13/18 at 12:59 Sodium Chloride 1,000 ml @ 1,000 mls/hr 1X ONCE IV Last administered on at 14:04; Start 09/11/18 at 14:00; Stop 09/11/18 at 14:59; Status DC Morphine Sulfate (Morphine Sulfate) 5 mg 1X ONCE IV Last administered on at 15:33; Start 09/11/18 at 15:15; Stop 09/11/18 at 15:16; Status DC Ondansetron HCl (Zofran) 4 mg 1X ONCE IV Last administered on 09/11/18at 17:26 ; Start 09/11/18 at 15:30; Stop 09/11/18 at 15:31; Status DC Ciprofloxacin/ Dextrose 200 ml @ 200 mls/hr 1X ONCE IV Last administered on at 17:25; Start 09/11/18 at 15:30; Stop 09/11/18 at 16:29; Status DC Metronidazole 100 ml @ 100 mls/hr 1X ONCE IV Last administered on 09/11/18at 16:13; Start 09/11/18 at 15:30; Stop 09/11/18 at 16:29; Status DC Ondansetron HCl (Zofran) 4 mg PRN Q8HRS PRN IV NAUSEA/VOMITING; Start 09/11/18 at 15:30; Stop 09/12/18 at 15:29 Morphine Sulfate (Morphine Sulfate) 4 mg PRN Q2HR PRN IV PAIN Last administered on 09/11/18at 17:25; Start 09/11/18 at 15:30; Stop 09/12/18 at 15:29 Fentanyl Citrate (Fentanyl 2ml Vial) 50 mcg PRN Q1HR PRN IV PAIN; Start at 15:30; Stop 09/12/18 at 15:29 Sodium Chloride 1,000 ml @ 125 mls/hr Q8H IV Last administered on 09/12/18at 03 :44; Start 09/11/18 at 15:30; Stop 09/12/18 at 15:29 Allopurinol (Zyloprim) 300 mg DAILY PO ; Start 09/12/18 at 09:00 Famotidine (Pepcid) 20 mg BID PO Last administered on 09/11/18at 21:01; Start at 21:00 Acetaminophen/ Hydrocodone Bitart (Lortab 5/325) 1 tab PRN Q8HRS PRN PO PAIN MILD TO MOD; Start 09/11/18 at 19:00; Stop 09/11/18 at 19:02; Status DC Simvastatin (Zocor) 40 mg QHS PO Last administered on 09/11/18at 21:01; Start at 21:00 Enoxaparin Sodium (Lovenox 40mg Syringe) 40 mg DAILY SQ ; Start 09/12/18 at 09: 00 Acetaminophen/ Hydrocodone Bitart (Lortab 5/325) 2 tab PRN Q8HRS PRN PO PAIN SEVERE; Start 09/11/18 at 19:02 Acetaminophen/ Hydrocodone Bitart (Lortab 5/325) 1 tab PRN Q8HRS PRN PO PAIN MILD TO MOD; Start 09/11/18 at 19:15 Ciprofloxacin/ Dextrose 200 ml @ 200 mls/hr Q12HR IV ; Start 09/11/18 at 21:00 ; Status Cancel Metronidazole 100 ml @ 100 mls/hr Q8HRS IV Last administered on 09/12/18at 05: 54; Start 09/11/18 at 22:00 Ciprofloxacin/ Dextrose 200 ml @ 200 mls/hr Q12HR IV ; Start 09/12/18 at 09:00 Active Scripts Active [place] 5-325 Tablet (Acetaminophen/Hydrocodone Bitart) 1 Each Tablet 1-2 Tab PO Q4-6HRS PRN Cephalexin 500 Mg Tablet 1 Tab PO QID Reported Simvastatin 40 Mg Tablet 40 Mg PO DAILY Allopurinol 300 Mg Tablet 1 Tab PO DAILY Famotidine 20 Mg Tablet 20 Mg PO BID Vitals/I & O Vital Sign - Last 24 Hours 09/11/18 09/11/18 09/11/18 09/11/18 11:47 12:05 12:30 13:16 Temp 98.4 98.4 Pulse 69 74 70 Resp 18 20 B/P (MAP) 158/84 (108) 158/84 (108) 158/81 (106) Pulse Ox 97 97 98 O2 Delivery Room Air Room Air Room Air 09/11/18 09/11/18 09/11/18 09/11/18 13:35 14:05 15:33 16:30 Temp 98.4 98.4 Pulse 70 68 68 Resp 18 18 B/P (MAP) 153/77 (102) 142/78 (99) 161/85 (110) Pulse Ox 99 97 96 O2 Delivery Room Air Room Air Room Air 09/11/18 09/11/18 09/11/18 09/11/18 17:25 18:08 18:30 19:00 Temp 98.5 98.5 Pulse 77 Resp 20 B/P (MAP) 112/76 (88) Pulse Ox 97 O2 Delivery Room Air Room Air Room Air 09/11/18 09/12/18 23:00 03:00 Temp 98.9 98.9 98.9 98.9 Pulse 72 61 Resp 18 16 B/P (MAP) 86/48 (61) 82/52 (62) Pulse Ox 96 98 Intake and Output 09/11/18 09/11/18 09/12/18 15:00 23:00 07:00 Intake Total 1240 ml 1700 ml Balance 1240 ml 1700 ml WILLI VELASQUEZ MD Sep 12, 2018 07:54
[2018-09-12] MEDS: CIPROFLOXACIN 400MG PREMIX 200 ML IV SCH ×2 (09:00→20:39)
[2018-09-12] MEDS ORDERED: POTASSIUM CHLORIDE 20 MEQ TABLET.ER. PO ONE (09:00)
[2018-09-12] MEDS: ENOXAPARIN 40 MG/0.4 ML SYRINGE. SQ SCH (09:00)
[2018-09-12] MEDS: ALLOPURINOL 300 MG TABLET. PO SCH (09:33)
[2018-09-12] MEDS: FAMOTIDINE 20 MG TABLET. PO SCH ×2 (09:33→20:38)
--- NOTE | 2018-09-12 10:09 | PDOC2 ---
GI CONSULT Reason For Consult: Persistent diarrhea HPI: HPI: 63 y/o male admitted through ER. Ill since Saturday (09/06/18) w/ lower abdominal cramping and watery diarrhea (20-30 times daily at home, twice today) . He hasn't eaten much because diarrhea occurs immediately after eating. 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 He also went on a [place] cruise last month (did not eat off the ship ). Additionally, he took atbx (?azithromycin) for URI a couple months ago. Had previous EGD and colonoscopy in college after he vomited blood, reports finding of duodenal ulcer. Was given Tagamet. H/o GERD controlled w/ daily Pepcid. No dysphagia. No hematemesis, hematochezia, melena, or constipation. Assumes weight loss since symptoms began. Typically no issues w/ nausea, abd pain, or diarrhea. Typically stools QOD. No GB, liver, or pancreas history. No routine NSAID use but did take a couple this week for abd cramping. Uses Tramadol and TENS device for chronic back pain. Took pain meds last night but has been okay today. PMH: PMH: HLD, gout, chronic back pain, headaches knee surgery, lumbar fusion FH: Family History: Cancer (brother - ?eye, sister - breast) Social History: Smoke: No ALCOHOL: none Drugs: None ROS: GEN: Denies fevers, chills, sweats HEENT: Denies blurred vision, sore throat CV: Denies chest pain RESP: Denies shortness of air, cough GI: Per HPI : Denies hematuria, dysuria ENDO: Denies weight changes NEURO: Denies confusion, dizziness MSK: Denies weakness, joint pain/swelling SKIN: Denies jaundice, pruritus Vitals: Vitals: Vital Signs Date Time Temp Pulse Resp B/P (MAP) Pulse Ox O2 Delivery O2 Flow Rate FiO2 09/12/18 07:00 98.1 80 17 100/54 (69) 96 Room Air 98.1 Labs: Labs: Laboratory Tests Test 09/11/18 12:07 09/11/18 12:30 09/11/18 14:48 09/12/18 04:10 White Blood Count 7.3 x10^3/uL (4.0-11.0) 5.0 x10^3/uL (4.0-11.0) Red Blood Count 5.24 x10^6/uL (4.30-5.70) 4.14 x10^6/uL (4.30-5.70) Hemoglobin 16.1 g/dL (13.0-17.5) 12.8 g/dL (13.0-17.5) Hematocrit 48.4 % (39.0-53.0) 38.5 % (39.0-53.0) Mean Corpuscular Volume 92 fL (79-100) 93 fL (79-100) Mean Corpuscular Hemoglobin 31 pg (25-35) 31 pg (25-35) Mean Corpuscular Hemoglobin Concent 33 g/dL (31-37) 33 g/dL (31-37) Red Cell Distribution Width 13.0 % (11.5-14.5) 13.0 % (11.5-14.5) Platelet Count 218 x10^3/uL (140-400) 187 x10^3/uL (140-400) Neutrophils (%) (Auto) 80 % (31-73) 51 % (31-73) Lymphocytes (%) (Auto) 13 % (24-48) 32 % (24-48) Monocytes (%) (Auto) 7 % (0-9) 13 % (0-9) Eosinophils (%) (Auto) 1 % (0-3) 3 % (0-3) Basophils (%) (Auto) 0 % (0-3) 0 % (0-3) Neutrophils # (Auto) 5.8 x10^3uL (1.8-7.7) 2.5 x10^3uL (1.8-7.7) Lymphocytes # (Auto) 0.9 x10^3/uL (1.0-4.8) 1.6 x10^3/uL (1.0-4.8) Monocytes # (Auto) 0.5 x10^3/uL (0.0-1.1) 0.7 x10^3/uL (0.0-1.1) Eosinophils # (Auto) 0.1 x10^3/uL (0.0-0.7) 0.2 x10^3/uL (0.0-0.7) Basophils # (Auto) 0.0 x10^3/uL (0.0-0.2) 0.0 x10^3/uL (0.0-0.2) Sodium Level 141 mmol/L (136-145) 143 mmol/L (136-145) Potassium Level 3.9 mmol/L (3.5-5.1) 3.6 mmol/L (3.5-5.1) Chloride Level 103 mmol/L (98-107) 107 mmol/L (98-107) Carbon Dioxide Level 29 mmol/L (21-32) 27 mmol/L (21-32) Anion Gap 9 (6-14) 9 (6-14) Blood Urea Nitrogen 18 mg/dL (8-26) 9 mg/dL (8-26) Creatinine 1.0 mg/dL (0.7-1.3) 0.9 mg/dL (0.7-1.3) Estimated GFR (Cockcroft-Gault) 75.2 85.0 BUN/Creatinine Ratio 18 (6-20) Glucose Level 102 mg/dL (70-99) 93 mg/dL (70-99) Calcium Level 9.2 mg/dL (8.5-10.1) 7.9 mg/dL (8.5-10.1) Total Bilirubin 0.8 mg/dL (0.2-1.0) Aspartate Amino Transf (AST/SGOT) 21 U/L (15-37) Alanine Aminotransferase (ALT/SGPT) 28 U/L (16-63) Alkaline Phosphatase 68 U/L (46-116) Total Protein 7.9 g/dL (6.4-8.2) Albumin 4.3 g/dL (3.4-5.0) Albumin/Globulin Ratio 1.2 (1.0-1.7) Lactic Acid Level 0.8 mmol/L (0.4-2.0) Urine Collection Type Unknown Urine Color Yellow Urine Clarity Clear Urine pH 5.0 Urine Specific [place] >=1.030 Urine Protein Negative mg/dL (NEG-TRACE) Urine Glucose (UA) Negative mg/dL (NEG) Urine Ketones (Stick) 15 mg/dL (NEG) Urine Blood Negative (NEG) Urine Nitrite Negative (NEG) Urine Bilirubin Negative (NEG) Urine Urobilinogen Dipstick 0.2 mg/dL (0.2 mg/dL) Urine Leukocyte Esterase Negative (NEG) Urine RBC Rare /HPF (0-2) Urine WBC Rare /HPF (0-4) Urine Bacteria 0 /HPF (0-FEW) Urine Mucus Slight /LPF Magnesium Level 1.9 mg/dL (1.8-2.4) Allergies: Coded Allergies: No Known Drug Allergies (Unverified , 05/27/18) Medications: Current Medications Medications (Trade) Dose Ordered Sig/Flip Route PRN Reason Start Time Stop Time Status Last Admin Dose Admin Ondansetron HCl (Zofran) 4 mg 1X ONCE IV 09/11/18 12:15 09/11/18 12:16 DC 09/11/18 12:30 Sodium Chloride 1,000 ml @ 1,000 mls/hr 1X ONCE IV 09/11/18 12:15 09/11/18 13:14 DC 09/11/18 12:30 Morphine Sulfate (Morphine Sulfate) 5 mg 1X ONCE IV 09/11/18 12:30 09/11/18 12:31 DC 09/11/18 12:30 Sodium Chloride 1,000 ml @ 1,000 mls/hr 1X ONCE IV 09/11/18 14:00 09/11/18 14:59 DC 09/11/18 14:04 Morphine Sulfate (Morphine Sulfate) 5 mg 1X ONCE IV 09/11/18 15:15 09/11/18 15:16 DC 09/11/18 15:33 Ondansetron HCl (Zofran) 4 mg 1X ONCE IV 09/11/18 15:30 09/11/18 15:31 DC 09/11/18 17:26 Ciprofloxacin/ Dextrose 200 ml @ 200 mls/hr 1X ONCE IV 09/11/18 15:30 09/11/18 16:29 DC 09/11/18 17:25 Metronidazole 100 ml @ 100 mls/hr 1X ONCE IV 09/11/18 15:30 09/11/18 16:29 DC 09/11/18 16:13 Morphine Sulfate (Morphine Sulfate) 4 mg PRN Q2HR PRN IV PAIN 09/11/18 15:30 09/12/18 15:29 09/11/18 17:25 Sodium Chloride 1,000 ml @ 125 mls/hr Q8H IV 09/11/18 15:30 09/12/18 15:29 09/12/18 03:44 Allopurinol (Zyloprim) 300 mg DAILY PO 09/12/18 09:00 09/12/18 09:33 Famotidine (Pepcid) 20 mg BID PO 09/11/18 21:00 09/12/18 09:33 Simvastatin (Zocor) 40 mg QHS PO 09/11/18 21:00 09/11/18 21:01 Metronidazole 100 ml @ 100 mls/hr Q8HRS IV 09/11/18 22:00 09/12/18 05:54 Potassium Chloride (Klor-Con) 40 meq 1X ONCE PO 09/12/18 09:00 09/12/18 09:01 DC 09/12/18 09:33 Imaging: Imaging: CT A/P IMPRESSION: 1. Mild thickened appearance of the wall of the transverse colon, descending colon, sigmoid colon with minimal surrounding fat stranding likely colitis. PE: GEN: NAD HEENT: Atraumatic, PERRL LUNGS: CTAB HEART: RRR ABD: NABS, S/ND/NT EXTREMITY: No edema SKIN: No rashes, no jaundice NEURO/PSYCH: A & O 3 A/P: A/P: Lower abd cramping, diarrhea - acute onset 09/06/[address] - mild thickened appearance of the wall of the transverse, descending, and sigmoid colon GERD, h/o duodenal ulcer - on H2 victor hugo QD CRC screen - last colonoscopy in college -- Await stool tests - C Diff, stool culture, fecal WBC pending. Okay to ADAT. Okay to continue H2 victor hugo. Is on IV Flagyl and Cipro per ER/primary. Outpt colonoscopy for screening. CHRIS YEAGER Sep 12, 2018 10:09
[2018-09-12 10:36] VITALS: BP 107/66
[2018-09-12 14:43] VITALS: BP 105/68
--- NOTE | 2018-09-12 15:17 | NUR ---
SW met with pt to discuss AD referral. SW provided pt with AD form and pt reported 'he wants to look into it' before completing AD. Pt at this time is interested in knowing if he is able to go home. Discussed with RN.
[2018-09-12 19:00] VITALS: BP 104/61
[2018-09-12] MEDS: SIMVASTATIN 40 MG TABLET. PO SCH (20:38)
[2018-09-12] MEDS: LACTOBACILLUS RHAMNOSUS GG 1 CAPSULE. PO SCH (20:38)
[2018-09-12 23:00] VITALS: BP 109/60
[2018-09-13 02:43] VITALS: BP 99/54
[2018-09-13 07:00] VITALS: BP 125/71
[2018-09-13] MEDS ORDERED: LOPERAMIDE 2 MG CAPSULE PO PRN (09:00)
[2018-09-13] MEDS: ENOXAPARIN 40 MG/0.4 ML SYRINGE. SQ SCH (09:00)
[2018-09-13] MEDS: FAMOTIDINE 20 MG TABLET. PO SCH (09:58)
[2018-09-13] MEDS: LACTOBACILLUS RHAMNOSUS GG 1 CAPSULE. PO SCH (09:58)
[2018-09-13] MEDS: ALLOPURINOL 300 MG TABLET. PO SCH (09:58)
[2018-09-13] MEDS: CIPROFLOXACIN 400MG PREMIX 200 ML IV SCH (10:00)
[2018-09-13] MEDS ORDERED: CIPR500T94 PO (10:16)
[2018-09-13] MEDS ORDERED: METR500T PO (10:16)
--- NOTE | 2018-09-13 10:19 | PDOC3 ---
Discharge Summary Visit Information Date of Admission: Sep 11, 2018 Date of Discharge: Sep 13, 2018 Admitting Diagnosis Comment: Colitis by CAT scan Diarrhea acute onset Final Diagnosis Problems Medical Problems: (1) Abdominal pain Status: Acute (2) Colitis Status: Acute (3) Diarrhea Status: Acute Brief Hospital Course Allergies Allergies Coded Allergies Type Severity Reaction Last Updated Verified No Known Drug Allergies 05/27/18 No Vital Signs Vital Signs Date Time Temp Pulse Resp B/P (MAP) Pulse Ox O2 Delivery O2 Flow Rate FiO2 09/13/18 07:00 97.6 60 18 125/71 (89) 97 Room Air 97.6 Lab Results Laboratory Tests Test 09/11/18 12:07 09/11/18 12:30 09/11/18 14:48 09/11/18 15:10 White Blood Count 7.3 x10^3/uL (4.0-11.0) Red Blood Count 5.24 x10^6/uL (4.30-5.70) Hemoglobin 16.1 g/dL (13.0-17.5) Hematocrit 48.4 % (39.0-53.0) Mean Corpuscular Volume 92 fL (79-100) Mean Corpuscular Hemoglobin 31 pg (25-35) Mean Corpuscular Hemoglobin Concent 33 g/dL (31-37) Red Cell Distribution Width 13.0 % (11.5-14.5) Platelet Count 218 x10^3/uL (140-400) Neutrophils (%) (Auto) 80 % (31-73) Lymphocytes (%) (Auto) 13 % (24-48) Monocytes (%) (Auto) 7 % (0-9) Eosinophils (%) (Auto) 1 % (0-3) Basophils (%) (Auto) 0 % (0-3) Neutrophils # (Auto) 5.8 x10^3uL (1.8-7.7) Lymphocytes # (Auto) 0.9 x10^3/uL (1.0-4.8) Monocytes # (Auto) 0.5 x10^3/uL (0.0-1.1) Eosinophils # (Auto) 0.1 x10^3/uL (0.0-0.7) Basophils # (Auto) 0.0 x10^3/uL (0.0-0.2) Sodium Level 141 mmol/L (136-145) Potassium Level 3.9 mmol/L (3.5-5.1) Chloride Level 103 mmol/L (98-107) Carbon Dioxide Level 29 mmol/L (21-32) Anion Gap 9 (6-14) Blood Urea Nitrogen 18 mg/dL (8-26) Creatinine 1.0 mg/dL (0.7-1.3) Estimated GFR (Cockcroft-Gault) 75.2 BUN/Creatinine Ratio 18 (6-20) Glucose Level 102 mg/dL (70-99) Calcium Level 9.2 mg/dL (8.5-10.1) Total Bilirubin 0.8 mg/dL (0.2-1.0) Aspartate Amino Transf (AST/SGOT) 21 U/L (15-37) Alanine Aminotransferase (ALT/SGPT) 28 U/L (16-63) Alkaline Phosphatase 68 U/L (46-116) Total Protein 7.9 g/dL (6.4-8.2) Albumin 4.3 g/dL (3.4-5.0) Albumin/Globulin Ratio 1.2 (1.0-1.7) Lactic Acid Level 0.8 mmol/L (0.4-2.0) Urine Collection Type Unknown Urine Color Yellow Urine Clarity Clear Urine pH 5.0 Urine Specific [place] >=1.030 Urine Protein Negative mg/dL (NEG-TRACE) Urine Glucose (UA) Negative mg/dL (NEG) Urine Ketones (Stick) 15 mg/dL (NEG) Urine Blood Negative (NEG) Urine Nitrite Negative (NEG) Urine Bilirubin Negative (NEG) Urine Urobilinogen Dipstick 0.2 mg/dL (0.2 mg/dL) Urine Leukocyte Esterase Negative (NEG) Urine RBC Rare /HPF (0-2) Urine WBC Rare /HPF (0-4) Urine Bacteria 0 /HPF (0-FEW) Urine Mucus Slight /LPF Clostridium difficile Toxin B Gene Negative (Negative) Test 09/12/18 04:10 White Blood Count 5.0 x10^3/uL (4.0-11.0) Red Blood Count 4.14 x10^6/uL (4.30-5.70) Hemoglobin 12.8 g/dL (13.0-17.5) Hematocrit 38.5 % (39.0-53.0) Mean Corpuscular Volume 93 fL (79-100) Mean Corpuscular Hemoglobin 31 pg (25-35) Mean Corpuscular Hemoglobin Concent 33 g/dL (31-37) Red Cell Distribution Width 13.0 % (11.5-14.5) Platelet Count 187 x10^3/uL (140-400) Neutrophils (%) (Auto) 51 % (31-73) Lymphocytes (%) (Auto) 32 % (24-48) Monocytes (%) (Auto) 13 % (0-9) Eosinophils (%) (Auto) 3 % (0-3) Basophils (%) (Auto) 0 % (0-3) Neutrophils # (Auto) 2.5 x10^3uL (1.8-7.7) Lymphocytes # (Auto) 1.6 x10^3/uL (1.0-4.8) Monocytes # (Auto) 0.7 x10^3/uL (0.0-1.1) Eosinophils # (Auto) 0.2 x10^3/uL (0.0-0.7) Basophils # (Auto) 0.0 x10^3/uL (0.0-0.2) Sodium Level 143 mmol/L (136-145) Potassium Level 3.6 mmol/L (3.5-5.1) Chloride Level 107 mmol/L (98-107) Carbon Dioxide Level 27 mmol/L (21-32) Anion Gap 9 (6-14) Blood Urea Nitrogen 9 mg/dL (8-26) Creatinine 0.9 mg/dL (0.7-1.3) Estimated GFR (Cockcroft-Gault) 85.0 Glucose Level 93 mg/dL (70-99) Calcium Level 7.9 mg/dL (8.5-10.1) Magnesium Level 1.9 mg/dL (1.8-2.4) Brief Hospital Course 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 Had initial white count but no fever. After getting IV Flagyl and Cipro for 3 days much better. No more diarrhea, tolerating by mouth. No electric abnormalities. CT shows colitis, Discharging on by mouth Cipro and Flagyl for 10 more days Consults performed GI Procedures performed none Follow-up instructions follow-up with GI for outpatient colonoscopy down the road Discharge Information Condition at Discharge: Improved, Stable Follow Up: Weeks (4-6 weks ff up GI for OP c scope) Disposition/Orders: D/C to Home Scheduled Allopurinol (Allopurinol) 300 Mg Tablet, 1 TAB PO DAILY for GOUT, #30 Ref 5 ( Reported) Entered as Reported by: MAMADOU LA on 09/11/181827 Last Taken: Unknown Dose on 09/10/18 Last Action: Continued on 09/11/181857 by BEN HODGES MD Cephalexin (Cephalexin) 500 Mg Tablet, 1 TAB PO QID, #40 Prescribed by: Reny Doe APRN on 05/27/181504 Last Action: HELD on 09/11/181857 by BEN HODGES MD Ciprofloxacin Hcl (Cipro) 500 Mg Tablet, 1 TAB PO BID for colitis, #20 Prescribed by: NORRIS SORENSON on 09/13/18 1016 Famotidine (Famotidine) 20 Mg Tablet, 20 MG PO BID for HEARTBURN , (Reported) Entered as Reported by: MAMADOU LA on 09/11/181827 Last Taken: Unknown Dose on 09/10/18 Last Action: Continued on 09/11/181857 by BEN HODGES MD Metronidazole (Flagyl) 500 Mg Tablet, 1 TAB PO BID for colitis for 10 Days, #20 Prescribed by: NORRIS SORENSON on 09/13/18 1016 Simvastatin (Simvastatin) 40 Mg Tablet, 40 MG PO DAILY for FOR CHOLESTEROL, #30 Ref 0 (Reported) Entered as Reported by: MAMADOU LA on 09/11/181827 Last Taken: Unknown Dose on 09/10/18 Last Action: Converted on 09/11/181857 by BEN HODGES MD Scheduled PRN Hydrocodone/Apap 5-325 ([place] 5-325 Tablet) 1 Each Tablet, 1-2 TAB PO Q4-6HRS PRN for PAIN, #25 Prescribed by: Reny Doe APRN on 05/27/18 1505 Last Action: Continued on 09/11/181857 by MD DELTA SNOW CHERRIE Y MD Sep 13, 2018 10:19
== END 2018-09-13 11:30 | disposition home or self-care (01) | DRG 392 ==
LOC: ER 11:47 → 5 SOUTH 15:29 → 5 NORTH 09-12 16:04
PROVIDERS: ADMIT Family Medicine; ATTEND Family Medicine
DX: K52.89 Other specified noninfective gastroenteritis and colitis (principal); E78.00 Pure hypercholesterolemia, unspecified; E78.5 Hyperlipidemia, unspecified; E86.0 Dehydration; G89.29 Other chronic pain; K21.9 Gastro-esophageal reflux disease without esophagitis; M10.9 Gout, unspecified; Z80.9 Family history of malignant neoplasm, unspecified
CPT/HCPCS: 36415; 74177; 80048; 80053; 81001; 83605; 83735; 85025; 87045; 87493; 96361; 96365; 96375; J0744; J2270; J2405; J3490; J7030; 99285-25

== ENCOUNTER 2018-11-09 07:33 | Emergency (ER) | payer BC ==
[~2018-11-09] VITALS: Ht 177.8 cm; Wt 79.4 kg
[~2018-11-09 07:33] MED LIST changes: +ALLO300T PO; +CIPR500T94 PO; +FAMO20TA5 PO; +METR500T PO; +SIMV40TA3 PO
[2018-11-09 07:56] LABS: BILIRUBIN,URINE NEGATIVE (NEG); CLARITY,URINE CLEAR; COLOR,URINE YELLOW; NITRITE,URINE NEGATIVE (NEG); PROTEIN,URINE NEGATIVE (NEG-TRACE)
[2018-11-09] MEDS ORDERED: IV NORMAL SALINE 1000ML BAG 1,000 ML IV SCH (07:57)
[2018-11-09] MEDS ORDERED: fentaNYL PF VIAL 100 MCG/2 ML VIAL IV ONE (08:00)
[2018-11-09] MEDS ORDERED: ONDANSETRON PF 4 MG/2 ML VIAL. IV ONE (08:00)
[2018-11-09 08:14] LABS: BASO % 1 % (0-3); EOS # 0.1 x10^3/uL (0.0-0.7); EOS % 2 % (0-3); HEMATOCRIT 44.3 % (39.0-53.0); HEMOGLOBIN 15.2 g/dL (13.0-17.5); LYMPH # 0.9 x10^3/uL (1.0-4.8); LYMPH % 22 % (24-48); MEAN CORPUSCULAR HEMOGLOBIN 32 pg (25-35); MEAN CORPUSCULAR HGB CONC 34 g/dL (31-37); MEAN CORPUSCULAR VOLUME 92 fL (79-100); MONO # 0.4 x10^3/uL (0.0-1.1); MONO % 9 % (0-9); NEUT # 2.8 x10^3uL (1.8-7.7); NEUT % 67 % (31-73); PLATELET COUNT 222 x10^3/uL (140-400); RED BLOOD COUNT 4.82 x10^6/uL (4.30-5.70); RED CELL DISTRIBUTION WIDTH 13.3 % (11.5-14.5); WHITE BLOOD COUNT 4.2 x10^3/uL (4.0-11.0)
[2018-11-09] MEDS ORDERED: HYDROmorphone 2 MG/ML VIAL IV ONE (08:15)
[2018-11-09 08:20] LABS: BACTERIA,URINE 0 /HPF (0-FEW); RBC,URINE OCC /HPF (0-2); SQUAMOUS EPITHELIAL CELL,UR FEW /LPF
[2018-11-09 08:30] LABS: CALCIUM 9.3 mg/dL (8.5-10.1); CREATININE 1.2 mg/dL (0.7-1.3); POTASSIUM 4.2 mmol/L (3.5-5.1)
[2018-11-09 08:44] LABS: ALBUMIN 4.3 g/dL (3.4-5.0); ALBUMIN/GLOBULIN RATIO 1.3 (1.0-1.7); TOTAL BILIRUBIN 0.3 mg/dL (0.2-1.0); TOTAL PROTEIN 7.6 g/dL (6.4-8.2)
[2018-11-09] MEDS ORDERED: PANTOPRAZOLE IV PUSH 40 MG VIAL. IVP ONE (08:45)
[2018-11-09] MEDS ORDERED: CONTRAST GIVEN. MC PRN (09:00)
[2018-11-09] MEDS ORDERED: KETOROLAC 30 MG/ML VIAL. IV ONE (09:00)
[2018-11-09] MEDS ORDERED: IOHEXOL 300 MG/ML 100ML VIAL. IV ONE (09:00)
--- NOTE | 2018-11-09 09:31 | RAD ---
Examination: CT of the abdomen pelvis with IV contrast HISTORY: History of epigastric pain COMPARISON: 09/11/2018 TECHNIQUE: Axial CT images of the abdomen pelvis were performed with IV contrast. Coronal and sagittal reformats are performed. Exposure: One or more of the following individualized dose reduction techniques were utilized for this examination: 1. Automated exposure control 2. Adjustment of the mA and/or kV according to patient size 3. Use of iterative reconstruction technique FINDINGS: Minimal bibasilar lung atelectasis. No evidence of free air identified in the abdomen. The visualized liver, spleen, adrenals grossly appears unremarkable. The gallbladder is mildly distended. The stomach is mildly distended. Faint questionable fat stranding identified about the head of the pancreas. The small bowel is nondilated. There is mild thickened appearance of the wall of the transverse colon with minimal fat stranding. The appendix is normal. The bilateral kidneys enhance symmetrically. Cystic structures identified in the right kidney measuring 1.1 cm, similar to prior exam The urinary bladder is mildly distended. Mildly enlarged prostate gland. Mild degenerative changes thoracolumbar spine. Lower lumbar hardware identified. IMPRESSION: 1. Minimal thickened appearance of the transverse colon wall with minimal surrounding fat stranding possibly mild colitis. 2. Faint questionable fat stranding identified about the head of the pancreas probably motion artifact and less likely pancreatitis. Correlate with lab values. Electronically signed by: Asif Bowen MD (11/09/2018 9:28 AM) [facility]
[2018-11-09 10:00] VITALS: BP 142/85
[2018-11-09] MEDS ORDERED: ACET-704 PO (10:02)
--- NOTE | 2018-11-09 10:03 | PHYS DOC ---
Past Medical History Past Medical History: High Cholesterol Additional Past Medical Histor: GOUT,CHRONIC BACK PAIN Past Surgical History: Other Additional Past Surgical Histo: BACK SURGERY, KNEE Alcohol Use: None Drug Use: None Adult General Chief Complaint Chief Complaint: ABDOMINAL PAIN [facility] HPI Patient is a 63 year old male who presents with complaining of epigastric pain. Patient complaining of sudden onset of epigastric pain since 4 AM for the last few hours before to presentation to ER as a constant and sharp pain without radiation. Patient complaining of nausea without vomiting. Patient rated his pain 10 over 10 and states he had the same pain in right lower quadrant 2 months ago and was admitted at Hospital with unremarkable evaluation. Patient states he had another episode of the same pain in right upper quadrant 2 weeks ago that resolved spontaneously. Patient states he had unremarkable CT of abdomen and pelvis in his previous hospitalization and had unremarkable abdominal ultrasound as outpatient by his primary care physician. Patient denies chest pain, shortness of breath, fever and chills, cough and congestion, diarrhea and constipation, urinary symptom. Review of Systems Review of Systems Constitutional: Denies fever or chills [] Eyes: Denies change in visual acuity, redness, or eye pain [] HENT: Denies nasal congestion or sore throat [] Respiratory: Denies cough or shortness of breath [] Cardiovascular: No additional information not addressed in HPI [] GI: Reports abdominal pain, nausea, denies vomiting, bloody stools or diarrhea [] : Denies dysuria or hematuria [] Musculoskeletal: Denies back pain or joint pain [] Integument: Denies rash or skin lesions [] Neurologic: Denies headache, focal weakness or sensory changes [] Endocrine: Denies polyuria or polydipsia [] All other systems were reviewed and found to be within normal limits, except as documented in this note. Current Medications Current Medications Current Medications Medications (Trade) Dose Ordered Sig/Flip Start Time Stop Time Status Last Admin Dose Admin Fentanyl Citrate (Fentanyl 2ml Vial) 50 mcg 1X ONCE 11/09/18 08:00 11/09/18 08:01 DC 11/09/18 08:07 50 MCG Hydromorphone HCl (Dilaudid) 1 mg 1X ONCE 11/09/18 08:15 11/09/18 08:16 DC 11/09/18 08:14 1 MG Info (CONTRAST GIVEN -- Rx MONITORING) 1 each PRN DAILY PRN 11/09/18 09:00 11/09/18 10:21 DC Iohexol (Omnipaque 300 Mg/ml) 75 ml 1X ONCE 11/09/18 09:00 11/09/18 09:01 DC 11/09/18 09:08 75 ML Ketorolac Tromethamine (Toradol 30mg Vial) 30 mg 1X ONCE 11/09/18 09:00 11/09/18 09:03 DC 11/09/18 09:16 30 MG Ondansetron HCl (Zofran) 4 mg 1X ONCE 11/09/18 08:00 11/09/18 08:01 DC 11/09/18 08:07 4 MG Pantoprazole Sodium (PROTONIX VIAL for IV PUSH) 40 mg 1X ONCE 11/09/18 08:45 11/09/18 08:49 DC 11/09/18 08:55 40 MG Sodium Chloride 1,000 ml @ 1,000 mls/hr Q1H 11/09/18 07:57 11/09/18 08:56 DC 11/09/18 07:57 1,000 MLS/HR Allergies Allergies Allergies Coded Allergies Type Severity Reaction Last Updated Verified hydrocodone Allergy Severe Itching 11/09/18 Yes oxycodone Allergy Severe Itching 11/09/18 Yes Physical Exam Physical Exam Constitutional: Well developed, well nourished, moderate distress, non-toxic appearance. [] HENT: Normocephalic, atraumatic, oropharynx moist. Eyes: PERRLA, EOMI, conjunctiva normal, no discharge. [] Neck: Normal range of motion, no tenderness, supple, no stridor. [] Cardiovascular:Heart rate regular rhythm, no murmur [] Lungs & Thorax: Bilateral breath sounds clear to auscultation [] Abdomen: Bowel sounds normal, soft, epigastric guarding, no tenderness, no masses, no pulsatile masses. [] Skin: Warm, dry, no erythema, no rash. [] Back: No tenderness, no CVA tenderness. [] Extremities: No tenderness, no cyanosis, no clubbing, ROM intact, no edema. [] Neurologic: Alert and oriented X 3, normal motor function, normal sensory func tion, no focal deficits noted. [] Psychologic: Affect normal, judgement normal, mood normal. [] Current Patient Data Vital Signs Vital Signs Date Time Temp Pulse Resp B/P (MAP) Pulse Ox O2 Delivery O2 Flow Rate FiO2 11/09/18 10:00 64 18 142/85 (104) 100 Room Air 11/09/18 07:36 97.8 97.8 Lab Values Laboratory Tests Test 11/09/18 07:45 11/09/18 07:50 Urine Collection Type Unknown Urine Color Yellow Urine Clarity Clear Urine pH 6.0 Urine Specific [place] 1.020 Urine Protein Negative mg/dL (NEG-TRACE) Urine Glucose (UA) Negative mg/dL (NEG) Urine Ketones (Stick) Negative mg/dL (NEG) Urine Blood Negative (NEG) Urine Nitrite Negative (NEG) Urine Bilirubin Negative (NEG) Urine Urobilinogen Dipstick 1.0 mg/dL (0.2 mg/dL) Urine Leukocyte Esterase Negative (NEG) Urine RBC Occ /HPF (0-2) Urine WBC 1-4 /HPF (0-4) Urine Squamous Epithelial Cells Few /LPF Urine Bacteria 0 /HPF (0-FEW) Urine Mucus Mod /LPF White Blood Count 4.2 x10^3/uL (4.0-11.0) Red Blood Count 4.82 x10^6/uL (4.30-5.70) Hemoglobin 15.2 g/dL (13.0-17.5) Hematocrit 44.3 % (39.0-53.0) Mean Corpuscular Volume 92 fL (79-100) Mean Corpuscular Hemoglobin 32 pg (25-35) Mean Corpuscular Hemoglobin Concent 34 g/dL (31-37) Red Cell Distribution Width 13.3 % (11.5-14.5) Platelet Count 222 x10^3/uL (140-400) Neutrophils (%) (Auto) 67 % (31-73) Lymphocytes (%) (Auto) 22 % (24-48) L Monocytes (%) (Auto) 9 % (0-9) Eosinophils (%) (Auto) 2 % (0-3) Basophils (%) (Auto) 1 % (0-3) Neutrophils # (Auto) 2.8 x10^3uL (1.8-7.7) Lymphocytes # (Auto) 0.9 x10^3/uL (1.0-4.8) L Monocytes # (Auto) 0.4 x10^3/uL (0.0-1.1) Eosinophils # (Auto) 0.1 x10^3/uL (0.0-0.7) Basophils # (Auto) 0.0 x10^3/uL (0.0-0.2) Sodium Level 142 mmol/L (136-145) Potassium Level 4.2 mmol/L (3.5-5.1) Chloride Level 105 mmol/L (98-107) Carbon Dioxide Level 28 mmol/L (21-32) Anion Gap 9 (6-14) Blood Urea Nitrogen 24 mg/dL (8-26) Creatinine 1.2 mg/dL (0.7-1.3) Estimated GFR (Cockcroft-Gault) 61.0 BUN/Creatinine Ratio 20 (6-20) Glucose Level 117 mg/dL (70-99) H Calcium Level 9.3 mg/dL (8.5-10.1) Total Bilirubin 0.3 mg/dL (0.2-1.0) Aspartate Amino Transferase (AST) 28 U/L (15-37) Alanine Aminotransferase (ALT) 29 U/L (16-63) Alkaline Phosphatase 67 U/L (46-116) Creatine Kinase 278 U/L (39-308) Troponin I Quantitative < 0.017 ng/mL (0.000-0.055) Total Protein 7.6 g/dL (6.4-8.2) Albumin 4.3 g/dL (3.4-5.0) Albumin/Globulin Ratio 1.3 (1.0-1.7) Lipase 112 U/L (73-393) Laboratory Tests 11/09/18 07:50 Laboratory Tests 11/09/18 07:50 EKG EKG [] Radiology/Procedures Radiology/Procedures [facility] [address] [place], [place] [id number] IMAGING REPORT Signed PATIENT: BEN EVANS ACCOUNT: [id number] : 1955 LOCATION: ER AGE: 63 SEX: M EXAM STATUS: REG ER ORD. PHYSICIAN: SADIQ MICHELLE MD REASON: epigastric pain PROCEDURE: CT ABD PELV W/ORAL&IV CONTRAST Examination: CT of the abdomen pelvis with IV contrast HISTORY: History of epigastric pain COMPARISON: 09/11/2018 TECHNIQUE: Axial CT images of the abdomen pelvis were performed with IV contrast. Coronal and sagittal reformats are performed. Exposure: One or more of the following individualized dose reduction techniques were utilized for this examination: 1. Automated exposure control 2. Adjustment of the mA and/or kV according to patient size 3. Use of iterative reconstruction technique FINDINGS: Minimal bibasilar lung atelectasis. No evidence of free air identified in the abdomen. The visualized liver, spleen, adrenals grossly appears unremarkable. The gallbladder is mildly distended. The stomach is mildly distended. Faint questionable fat stranding identified about the head of the pancreas. The small bowel is nondilated. There is mild thickened appearance of the wall of the transverse colon with minimal fat stranding. The appendix is normal. The bilateral kidneys enhance symmetrically. Cystic structures identified in the right kidney measuring 1.1 cm, similar to prior exam The urinary bladder is mildly distended. Mildly enlarged prostate gland. Mild degenerative changes thoracolumbar spine. Lower lumbar hardware identified. IMPRESSION: 1. Minimal thickened appearance of the transverse colon wall with minimal surrounding fat stranding possibly mild colitis. 2. Faint questionable fat stranding identified about the head of the pancreas probably motion artifact and less likely pancreatitis. Correlate with lab values. Electronically signed by: Asif Bowen MD (11/09/2018 9:28 AM) [facility] [place] DICTATED and SIGNED BY: ASIF BOWEN MD DATE: 11/09/18927 Course & Med Decision Making Course & Med Decision Making Pertinent Labs and Imaging studies reviewed. (See chart for details) Evaluation of patient in ER showed 63-year-old male patient with severe epigastric pain that improved after several pain medications. Patient had unremarkable labs and CT abdomen and pelvis except for mild colitis. Patient had episodes of the same pain previously and seen by his primary care physician and GI specialist. Patient was advised to follow-up with his GI and primary care physician for more workup regarding recurrent episodes of abdominal pain. Dragon Disclaimer Dragon Disclaimer This electronic medical record was generated, in whole or in part, using a voice recognition dictation system. Departure Departure Impression: Primary Impression: Epigastric pain Additional Impression: Gas pain Disposition: HOME, SELF-CARE (at 0 [phone]) Condition: IMPROVED Referrals: UNKNOWN PCP NAME (PCP) KENDRICK GUPTA MD Patient Instructions: Abdominal Pain Additional Instructions: Drink plenty of liquids Follow-up with your primary care physician in 2-3 days for referral to GI specialist Return to ER if not getting better Continue current home medication Scripts Acetaminophen With Codeine (TYLENOL WITH CODEINE #3 TABLET) 1 Each Tablet 1 TAB PO PRN Q6HRS PRN for PAIN, #14 TAB Prov: SADIQ MICHELLE MD 11/09/18 Problem Qualifiers SADIQ MICHELLE MD November 09, 2018 10:02
== END 2018-11-09 10:12 | disposition home or self-care (01) ==
LOC: ER 07:33
DX: R10.13 Epigastric pain (principal); R14.1 Gas pain; N40.0 Benign prostatic hyperplasia without lower urinary tract symptoms; G89.29 Other chronic pain; E78.00 Pure hypercholesterolemia, unspecified; Z88.5 Allergy status to narcotic agent
CPT/HCPCS: 36415; 74177; 80053; 81001; 82550; 83690; 84484; 85025; 96374; 96375; 99285; C9113; J1170; J1885; J2405; J3010; J7030; Q9967